=== PATIENT | female | born 1950 | race Hispanic/Latino ===

== ENCOUNTER 2024-07-30 17:21 | Observation (INO) | payer MEDICARE ==
[~2024-07-30] VITALS: Ht 157.5 cm; Wt 77.5 kg
--- NOTE | 2024-07-30 17:36 | ERN ---
ED Note History of Present Illness Stated Complaint: SENT BY LILLIANA BRONCHITIS Chief Complaint: Cough Time Seen by MD: 17:22 Time Seen by Midlevel: 17:22 Dictation: The patient is a 74-year-old female with a history of diabetes, hypertension, hyperlipidemia who presents to the emergency department after being sent by Dr. Short for evaluation of bronchitis, rule out pneumonia. Patient reports a non expiratory cough, sore throat, Chest pain with coughing, onset yesterday. Patient denies any fevers, shortness of breath, nausea or vomiting. Allergies: Coded Allergies: Penicillins (Unverified Allergy, Unknown, 07/30/24) egg (Unverified Allergy, Unknown, 07/30/24) Past Medical History Past Medical History: Arthritis, Diabetes-Type II, High Cholesterol, Hypertension Additional Past Medical Hx: CHRONIC BACK PAIN Surgical History: Cholecystectomy Surgical History Other: BACK PAIN RN Note Reviewed/Agreed w/PFSH: Yes Review of System Dictation Constitutional: Negative for fever,chills, and weight loss Eyes: Negative for injury, pain,redness, and discharge ENT: Negative for injury,pain or swelling positive for sore throat Cardiovascular: Negative for chest pain, palpitations, and edema Respiratory: Negative for shortness of breath, and wheezing, positive for cough Abdomen/GI: Negative for abdominal pain, nausea, vomiting, diarrhea, and constipation Back: Negative for injury and pain : Negative for injury, bleeding and discharge MS/Extremity: Negative for injury and deformity Skin: Negative for rash, and discoloration Neuro: Negative for headache, weakness, numbness, tingling, and seizure Psych: Negative for suicide ideation, homicidal ideation, and hallucinations Initial Vital Sign VS Vital Signs Date Time Temp Pulse Resp B/P (MAP) Pulse Ox O2 Delivery O2 Flow Rate FiO2 07/30/24 17:25 98.4 82 20 148/65 96 Room Air 0 07/30/24 18:06 21 Physical Exam Dictation Vital Signs reviewed General Appearance: Alert, oriented x 3, no acute distress, well developed, nourished. Head and Face: non-traumatic. Eyes: PERRL, pink conjunctivas, eyelid no trauma, anterior chamber with arcus senilis. Ears: Pinnas intact and no signs of trauma or erythema ear canals clear and no discharge TM no erythema Nose: No discharge, no bleeding. Oropharynx: Mouth normal, tongue pink. pharynx clear,no erythema, tonsils no exudates, no abscesses noted, mucous membrane moist Neck: Supple, non-tender, no thyromegaly, no masses, no JVD, no bruits Breast:Deferred Chest:No tenderness, no crepitus, no paradoxical movement, no retractions Lungs:Clear, well-ventilated, symmetric, no rales, no wheezing, no rhonchi, no stridor, good breath sounds bilaterally Heart: Regular rate, regular rhythm, no murmur, no gallops Vascular: no peripheral edema, Abdomen: Soft, positive bowel sounds, nondistended, no guarding, nontender, no rebound, no masses no hepatomegaly, no splenomegaly, no Lopez's sign, no hernias. Rectal: Deferred Genital: Deferred Neurological: Normal speech, motor function intact, sensory function intact Musculoskeletal: Neck nontender, full range of motion, back nontender, full range of motion, Extremities: nontender, full range of motion Skin: Color pink, dry, no turgor, no rash, no lacerations, no abrasions, no contusions. Lymphatic: Deferred Results (Laboratory/Radiology) Laboratory/Radiology Laboratory Tests Test 07/30/24 17:59 07/30/24 18:06 White Blood Count 5.8 K/uL (4.8-10.8) Red Blood Count 4.30 MIL/uL (4.00-5.50) Hemoglobin 12.4 g/dL (12.0-16.0) Hematocrit 38.5 % (36-48) Mean Corpuscular Volume 89.5 fL (79-99) Mean Corpuscular Hemoglobin 28.8 pg (27.0-33.0) Mean Corpuscular Hemoglobin Concent 32.2 g/dL (32.0-36.0) Red Cell Distribution Width 13.6 % (11.0-15.5) Platelet Count 252 K/uL (130-400) Mean Platelet Volume 10.2 fL (7.5-10.5) Immature Granulocyte % (Auto) 0.2 % (0-1) Neutrophils (%) (Auto) 51.1 % (40.0-77.0) Lymphocytes (%) (Auto) 36.6 % (21.0-51.0) Monocytes (%) (Auto) 9.2 % (3.0-13.0) Eosinophils (%) (Auto) 2.4 % (0.0-8.0) Basophils (%) (Auto) 0.5 % (0.0-5.0) Neutrophils # (Auto) 3.0 K/uL (1.8-7.7) Lymphocytes # (Auto) 2.1 K/uL (1.0-4.8) Monocytes # (Auto) 0.5 K/uL (0.1-1.0) Eosinophils # (Auto) 0.14 K/uL (0.00-0.70) Basophils # (Auto) 0.03 K/uL (0.00-0.20) Absolute Immature Granulocyte (auto 0.01 K/uL (0-1) Nucleated Red Blood Cells 0.0 % (0.0-0.19) Sodium Level 138 mmol/L (136-145) Potassium Level 4.0 mmol/L (3.5-5.1) Chloride Level 101 mmol/L (101-111) Carbon Dioxide Level 31 mmol/L (21-32) Blood Urea Nitrogen 11 mg/dL (7-18) Creatinine 0.7 mg/dL (0.5-1.0) Glomerular Filtration Rate Calc 91 mL/min (>90) Random Glucose 184 mg/dL (70-105) H Total Calcium 9.2 mg/dL (8.5-10.1) Magnesium Level 1.80 mg/dL (1.80-2.40) Total Creatine Kinase 125 U/L (21-232) Troponin I High Sensitivity 55 ng/L (4-50) *H B-Type Natriuretic Peptide 19 pg/mL (0-100) Influenza Type A Antigen Negative For Type A Influenza Type B Antigen Negative For Type B SARS-CoV-2 Antigen (Rapid) PRESUMPTIVE NEGATIVE Group A Streptococcus Rapid positive (NEGATIVE) *A REASON: cough ORDERING PHYSICIAN: JOHN LOPES COOKER MECHANIC PROCEDURE: CXR1VW - CHEST 1VW PORTABLE CHEST RADIOGRAPH INDICATION: cough COMPARISON: None FINDINGS: Heart size is normal. Mild calcific plaque is present along the aortic arch hsieh. The pulmonary vascularity and isabel appear normal. No abnormal pulmonary parenchymal opacity or consolidation identified. Left hemidiaphragm is slightly elevated. No significant pleural effusion noted. No pneumothorax detected. IMPRESSION: No radiographic evidence for any acute cardiopulmonary process. Labs Reviewed?: Yes EKG: (+) rhythm (Sinus rhythm) EKG Comment: Date:07/30/2024 Time:1755 Ventricular rate:75 HI interval:147 QRS duration:122 QT/QTc:398 EKG interpretation: Sinus rhythm, right bundle-branch block Reviewed by ED Attending no STEMI ED Course ED Course Orders Procedure Category Date Status Time Cbc With Differential LAB 07/30/24 Complete 17:30 B-Type Natriuretic LAB 07/30/24 Complete Peptide 17:30 Chest 1vw RAD 07/30/24 Resulted 17:30 12 Lead Ekg Tracing- EKG 07/30/24 Complete Technical 17:30 Magnesium LAB 07/30/24 Complete 17:30 Creatine Kinase, Total LAB 07/30/24 Complete 17:30 Troponin I High LAB 07/30/24 Complete Sensitivity 17:30 Basic Metabolic Panel LAB 07/30/24 Complete 17:30 Covid19 (Sars Antigen LAB 07/30/24 Complete Rapid) 17:30 Influenza Type A & B, LAB 07/30/24 Complete Rapid 17:30 Ipratropium/Albuterol PHA 07/30/24 Complete Neb (Duoneb) 17:30 Methylprednisolone PHA 07/30/24 Complete Succ 125mg (Solu-Medr 17:30 Acetaminophen 325 Tab PHA 07/30/24 Complete (Tylenol 325mg Tab 17:30 0.9%Nacl 1000ml (Ns PHA 07/30/24 In Process 1000ml) 17:30 Rapid (Group A Strep) LAB 07/30/24 Complete 17:35 Troponin I High LAB 07/30/24 Logged Sensitivity 18:47 Aspirin 325mg Tab PHA 07/30/24 Complete (Aspirin 325mg Tab) 19:30 Azithromycin 500mg+Ns PHA 07/30/24 In Process 250ml (Azithromyci 20:00 Admit Orders ADM 07/30/24 Transmitted 20:04 Edm Admit Bridge Order ADM 07/30/24 Transmitted 20:04 Current Medications Medications (Trade) Dose Ordered Sig/Divya Route PRN Reason Start Time Stop Time Status Last Admin Dose Admin Acetaminophen (TYLenol 325MG TAB) 650 mg ONCE ONCE PO 07/30/24 17:30 07/30/24 17:35 DC 07/30/24 18:39 Albuterol (DUOneb) 1 UDVIAL ONCE ONCE IH 07/30/24 17:30 07/30/24 17:35 DC 07/30/24 18:05 Aspirin (Aspirin 325mg Tab) 325 mg ONCE ONCE PO 07/30/24 19:30 07/30/24 19:31 DC Azithromycin 250 ml @ 250 mls/hr ONCE ONCE IVPB 07/30/24 20:00 07/30/24 20:59 Methylprednisolone Sodium Succinate (Solu-medROL 125MG) 125 mg ONCE ONCE IVP 07/30/24 17:30 07/30/24 17:35 DC 07/30/24 18:38 Sodium Chloride 1,000 ml @ 125 mls/hr ONCE ONCE IV 07/30/24 17:30 07/31/24 01:29 07/30/24 18:38 Vital Signs Date Time Temp Pulse Resp B/P (MAP) Pulse Ox O2 Delivery O2 Flow Rate FiO2 07/30/24 19:58 98.4 81 18 121/58 97 Room Air* 0 21 07/30/24 18:06 98.2 88 16 127/62 98 Room Air* 0 21 07/30/24 17:52 76 18 07/30/24 17:25 98.4 82 20 148/65 96 Room Air 0 HEART Score Response (Comments) Value History: Low suspicion (0) 0 EKG: Normal 0 Age: > 65yrs (+2) 2 Risk Factors: 1-2 risk factors (+1) 1 Initial Troponin: 1-3x Normal Limit (+1) 1 Total 4 Medical Decision Making MDM MDM: The patient is a 74-year-old female with a history of diabetes, hypertension, hyperlipidemia who presents to the emergency department after being sent by Dr. Short for evaluation of bronchitis, rule out pneumonia. Patient reports a non expiratory cough, sore throat ,Chest pain with coughing, onset yesterday. Patient denies any fevers, shortness of breath, nausea or vomiting. CBC showed no leukocytosis, no anemia, chemistry showed no electrolyte imbalance, slightly elevated troponin at 50. Patient was currently not having any chest pain. Serology positive for strep. Patient treated with the azithromycin. Chest x-ray showed no acute pathology. Patient will be admitted for evaluation of elevated troponin further treatment. Differential diagnosis: Pneumonia, bronchitis, upper respiratory infection, strep throat, ACS Comorbidities: Diabetes, hypertension, hyperlipidemia, fatty liver, cholecystectomy Tests considered and not ordered secondary to shared decision making include: none Previous outside records reviewed: none Risk of complication and/or morbidity or mortality of patient management: The patient meets criteria for admission. Need for emergency major/minor surgery: No There are no social concerns with this patient. I independently interpreted the tests I ordered (labs, urinalysis, etc.). I discussed the case with the hospitalist for admission. Zahida ERIC who accepts admission I discussed the case with the following specialists: none. Historian: pateint. I independently interpreted imaging studies and EKGs that I ordered (US, CT, XR, EKG, etc.). External chart review: none. Medical management and examination interpretation discussions were had by me with other qualified healthcare professionals as indicated for the patient's care. DX & DISP Disposition: Inpatient Decision to Admit Date: Jul 30, 2024 Decision to Admit Time: 20:09 Departure Impression: Primary Impression: ACS (acute coronary syndrome) Additional Impressions: Elevated troponin, Strep throat, Cough Condition: Stable Referrals: MANUEL SHORT (PCP) I have reviewed the case, and I agree with, Diagnosis and Plan JOHN LOPES Jul 30, 2024 17:36
[2024-07-30 17:52] VITALS: PULSE 76; RESP 18
--- NOTE | 2024-07-30 17:57 | EKG ---
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
[2024-07-30] MEDS: IpraTROPium/alBUTERol SULFATE 3 ML SOLUTION IH ONE (18:05)
[2024-07-30 18:19] LABS: BASOPHILS # (AUTO) 0.03 K/uL (0.00-0.20); BASOPHILS % (AUTO) 0.5 % (0.0-5.0); EOSINOPHILS # (AUTO) 0.14 K/uL (0.00-0.70); EOSINOPHILS % (AUTO) 2.4 % (0.0-8.0); HEMATOCRIT 38.5 % (36-48); IMMATURE GRANULOCYTE ABSOLUTE 0.01 K/uL (0-1); LYMPHOCYTES # (AUTO) 2.1 K/uL (1.0-4.8); LYMPHOCYTES % (AUTO) 36.6 % (21.0-51.0); MEAN CORPUSCULAR HEMOGLOBIN 28.8 pg (27.0-33.0); MEAN CORPUSCULAR HGB CONC 32.2 g/dL (32.0-36.0); MEAN CORPUSCULAR VOLUME 89.5 fL (79-99); MONOCYTES # (AUTO) 0.5 K/uL (0.1-1.0); MONOCYTES % (AUTO) 9.2 % (3.0-13.0); NEUTROPHILS % (AUTO) 51.1 % (40.0-77.0); PLATELET COUNT (AUTO) 252 K/uL (130-400); RED CELL DISTRIBUTION WIDTH 13.6 % (11.0-15.5); WHITE BLOOD COUNT (AUTO) 5.8 K/uL (4.8-10.8)
--- NOTE | 2024-07-30 18:23 | HMCIMG ---
PORTABLE CHEST RADIOGRAPH INDICATION: cough COMPARISON: None FINDINGS: Heart size is normal. Mild calcific plaque is present along the aortic arch hsieh. The pulmonary vascularity and isabel appear normal. No abnormal pulmonary parenchymal opacity or consolidation identified. Left hemidiaphragm is slightly elevated. No significant pleural effusion noted. No pneumothorax detected. IMPRESSION: No radiographic evidence for any acute cardiopulmonary process.
[2024-07-30 18:29] LABS: CREATININE 0.7 mg/dL (0.5-1.0)
[2024-07-30 18:34] LABS: MAGNESIUM 1.8 mg/dL (1.80-2.40)
[2024-07-30 18:37] LABS: B-TYPE NATRIURETIC PEPTIDE 19 pg/mL (0-100)
[2024-07-30] MEDS: 0.9%NACL 1000ML 1,000 ML IV ONE (18:38)
[2024-07-30] MEDS: Solu-medROL 125MG VIAL IVP ONE (18:38)
[2024-07-30] MEDS: acetaMINOPHEN 325 MG TAB PO ONE (18:39)
[2024-07-30 18:45] LABS: COVID19 (SARS ANTIGEN RAPID) PRESUMPTIVE NEGATIVE (NEGATIVE); INFLUENZA TYPE A Negative For Type A (NEGATIVE); INFLUENZA TYPE B Negative For Type B (NEGATIVE)
[2024-07-30] MEDS: AZITHROMYCIN 500MG+NS 250ML 250 ML IVPB ONE (20:15)
[2024-07-30] MEDS: ASPIRIN 325MG TAB PO ONE (20:15)
[2024-07-30] MEDS ORDERED: GLUCAGON 1MG KIT 1 MG ML IM PRN (20:30)
[2024-07-30] MEDS ORDERED: ondanSETRON 4MG INJ IV PRN (20:30)
[2024-07-30] MEDS ORDERED: DEXTROSE 50%-WATER 50 ML DISP.SYRIN IV PRN (20:30)
[2024-07-30] MEDS ORDERED: MAGNESIUM 2GM PREMIX 50ML 50 ML IV PRN (20:30)
[2024-07-30] MEDS ORDERED: acetaMINOPHEN 325 MG TAB PO PRN (20:30)
[2024-07-30] MEDS ORDERED: PoTASSium chloRIDE 20MEQ ER 20 MEQ ERTAB PO PRN (20:30)
[2024-07-30] MEDS ORDERED: PoTASSium chloRIDE 20MEQ/100ML 100 ML IV PRN (20:30)
[2024-07-30] MEDS ORDERED: PoTASSium chl 10% ELIXIR 20MEQ 20 MEQ/15 ML UDCUP PO PRN (20:30)
[2024-07-30 20:57] LABS: APPEARANCE,URINE CLEAR (CLEAR); BILIRUBIN,URINE NEGATIVE (NEGATIVE); COLOR,URINE COLORLESS (YELLOW); GLUCOSE, URINE (UA) NEGATIVE (NEGATIVE); KETONES,URINE NEGATIVE (NEGATIVE); LEUKOCYTE ESTERASE ,URINE NEGATIVE Leu/uL (NEGATIVE); NITRATE,URINE NEGATIVE (NEGATIVE); OCCULT BLOOD,URINE NEGATIVE (NEGATIVE); PH,URINE 6.5 (5.0-8.0); PROTEIN,URINE NEGATIVE (NEGATIVE); UROBILINOGEN,URINE 0.2 mg/dL (0.2-1.0)
[2024-07-30 20:59] LABS: ADD UA MICROSCOPIC NO
[2024-07-30] MEDS: INSULIN humuLIN R 100 UNIT/ML 3ML SQ SCH (21:00)
--- NOTE | 2024-07-30 21:09 | HP ---
[facility] Date of Service: Jul 30, 2024 Time of Service: 20:05 PCP: Han Avila HISTORY OF PRESENT ILLNESS: This is a 74-year-old female, Thai-speaking with past medical history of chronic back pain, diabetes, hypertension and hyperlipidemia who presents to the ED coming from PCP clinic for evaluation of bronchitis and r/o pneumonia.As per ER report patient having dry cough with sore throat and chest pain with coughing onset yesterday.On my evaluation patient reports she was having non productive cough which started yesterday and last night she experienced sudden onset of headache, fatigue and feeling tired,but never had chest pain and sore throat and today she went to see her PCP and instructed her to come to the ED.Patient denies having cardiac problem and has not been seen by a pattern storage clerk before she said.Patient denies recent travel outside the country however his son is also having cough. Seen and examined patient in the ED awake,alert and coherent,appears comfortab le.Patient denies fever,chills, sore throat,chest pain,palpitation and shortness of breath. His vital signs temperature 98.4, heart rate 81, blood pressure 121/58, saturation 97% on room air. Labs: CBC . Glucose 184, troponin 55 BNP 19 the rest of the chemistry is normal. Influenza type a and B negative, SARs COVID negative group a strep positive a. EKG result revealed sinus rhythm heart rate 75 with right bundle branch block. Chest x-ray result revealed no radiographic evidence for any acute cardiopulmonary process. While in the ER patient received aspirin 325 mg IV, Tylenol 650 mg p.o., Solu-Medrol 125 mg IV DuoNeb and patient is started on NS at 1:25 a.m. mL/hour. We will admit patient for further medical management. REVIEW OF SYSTEMS CONSTITUTIONAL: Denies fevers, chills, or night sweats. No unintentional weight loss reported. NEUROLOGICAL: Complaints of fatigue, headache and generalized body weakness Denies amaurosis fugax, sensory deficit, vertigo/spinning sensation, gait abnormalities, or tremors. ENT: No hearing loss, otalgia, otorrhea, rhinitis, rhinorrhea, hoarseness, or sore throat. CARDIOVASCULAR: Denies any exertional angina, dyspnea on exertion, orthopnea, paroxysmal nocturnal dyspnea, palpitations, life-threatening arrhythmias, claudication. PULMONARY: Dry cough Denies any shortness of breath, phlegm/sputum, hemoptysis, pleuritic chest pain. SLEEP: Denies morning headaches, daytime somnolence or napping. Denies difficulty falling asleep, staying asleep, waking from sleep. Denies knowledge of snoring. GASTROINTESTINAL: Denies any type of dysphagia to either liquids or solids. Denies nausea, vomiting, pyrosis, early satiety, abdominal pain, diarrhea, constipation, or changes in stool consistency or caliber. Denies coffee-ground emesis, hematemesis, hematochezia, or melanotic stools. GENITOURINARY: Denies frequency, urgency, nocturia, hematuria or incontinence (Storage/Irritative symptoms.) Low urinary stream, straining to void, urinary intermittency or hesitancy, splitting of the voiding stream, terminal dribbling. ENDOCRINOLOGIC: Denies polyuria, polydipsia, polyphagia or heat/cold intolerances. HEMATOLOGIC: Denies thrombophilia/previous clots, or coagulopathy/bleeding disorders. ONCOLOGIC: Denies personal history of malignancy. DERMATOLOGIC: Denies rashes or pruritus. PSYCHIATRIC: Denies any suicidal or homicidal ideation. Denies hallucinations. PAST MEDICAL HISTORY: [ Chronic back pain, diabetes, hypertension and hyperlipidemia ] PAST SURGICAL HISTORY: [Back surgery, cholecystectomy ] PAST SOCIAL HISTORY: [ Patient lives with son. Patient denies alcohol tobacco and recreational drug use. ] FAMILY HISTORY: [Noncontributory ] Coded Allergies: Penicillins (Unverified Allergy, Unknown, 07/30/24) egg (Unverified Allergy, Unknown, 07/30/24) PHYSICAL EXAM GENERAL APPEARANCE: The patient is awake, alert, and oriented, in no acute cardiopulmonary distress. NEUROLOGICAL: Cranial nerves II-XII grossly intact. Motor is 5/5 in bilateral upper and lower extremities proximal to distal. No sensory deficits. HEENT: Face is symmetric. Pupils are equal and reactive. Extraocular movements are intact. NECK: Supple. No JVD. No thyromegaly. No submental, submandibular, pre- /postauricular, occipital or supraclavicular lymphadenopathy. CHEST: Normal chest expansion. No Telemetry. LUNGS: Absence of any rales, rhonchi or any wheezing. CARDIOVASCULAR: Regular. S1 and S2 normal. No appreciable rubs, murmurs or gallops. ABDOMEN: Soft, nontender, and nondistended. There is no rebound, voluntary guarding, or rigidity. : Deferred. No [place]. EXTREMITIES: Non-edematous and not cyanotic. No clubbing. Good capillary refi ll. SKIN: No skin breakdown. Vital Sign (Last 24 Hours) 07/30/24 19:58 Temp 98.4 Pulse 81 Resp 18 B/P (MAP) 121/58 Pulse Ox 97 O2 Delivery Room Air* O2 Flow Rate 0 FiO2 21 LABS: Laboratory: Test 07/30/24 18:06 07/30/24 17:59 Range/Units Influenza Type A Antigen Negative For Type A NEGATIVE Influenza Type B Antigen Negative For Type B NEGATIVE SARS-CoV-2 Antigen (Rapid) PRESUMPTIVE NEGATIVE NEGATIVE Group A Streptococcus Rapid positive *A NEGATIVE White Blood Count 5.8 4.8-10.8 K/uL Red Blood Count 4.30 4.00-5.50 MIL/uL Hemoglobin 12.4 12.0-16.0 g/dL Hematocrit 38.5 36-48 % Mean Corpuscular Volume 89.5 79-99 fL Mean Corpuscular Hemoglobin 28.8 27.0-33.0 pg Mean Corpuscular Hemoglobin Concent 32.2 32.0-36.0 g/dL Red Cell Distribution Width 13.6 11.0-15.5 % Platelet Count 252 130-400 K/uL Mean Platelet Volume 10.2 7.5-10.5 fL Immature Granulocyte % (Auto) 0.2 0-1 % Neutrophils (%) (Auto) 51.1 40.0-77.0 % Lymphocytes (%) (Auto) 36.6 21.0-51.0 % Monocytes (%) (Auto) 9.2 3.0-13.0 % Eosinophils (%) (Auto) 2.4 0.0-8.0 % Basophils (%) (Auto) 0.5 0.0-5.0 % Neutrophils # (Auto) 3.0 1.8-7.7 K/uL Lymphocytes # (Auto) 2.1 1.0-4.8 K/uL Monocytes # (Auto) 0.5 0.1-1.0 K/uL Eosinophils # (Auto) 0.14 0.00-0.70 K/uL Basophils # (Auto) 0.03 0.00-0.20 K/uL Absolute Immature Granulocyte (auto 0.01 0-1 K/uL Nucleated Red Blood Cells 0.0 0.0-0.19 % Sodium Level 138 136-145 mmol/L Potassium Level 4.0 3.5-5.1 mmol/L Chloride Level 101 101-111 mmol/L Carbon Dioxide Level 31 21-32 mmol/L Blood Urea Nitrogen 11 7-18 mg/dL Creatinine 0.7 0.5-1.0 mg/dL Glomerular Filtration Rate Calc 91 >90 mL/min Random Glucose 184 H 70-105 mg/dL Total Calcium 9.2 8.5-10.1 mg/dL Magnesium Level 1.80 1.80-2.40 mg/dL Total Creatine Kinase 125 21-232 U/L Troponin I High Sensitivity 55 *H 4-50 ng/L B-Type Natriuretic Peptide 19 0-100 pg/mL DIAGNOSTICS / RADIOLOGY: [ ] ASSESSMENT: Elevated troponin rule out ACS POA Positive strep throat POA Uncontrolled diabetes POA Hypertension POA Hyperlipidemia POA Right bundle branch block per ECG POA PLAN: We will admit patient in PCCU We will start heart healthy diet We will continue aspirin 81 mg p.o. daily We will start patient on Levaquin 500 mg IV daily We will start patient on Lovenox 30 mg subQ daily & ,SCD for DVT prophylaxis We will start on Famotidine 20 mg IV bid for GI prophylaxis We will replace electrolytes as needed per protocol We will start on insulin sliding scale AC & HS with hypoglycemia protocol We will add prn medication for fever,pain,cough , nausea and vomiting We will trend troponin q.6 x3 We will seek Cardiology consultation We will reconcile home meds once medlist available We will request labs in am Further orders to follow depending on above results Case discussed with attending physician and came up with above treatment and plan of care. ADVANCED CARE PLANNING 1. Which of the following were discussed? Hospice Care - No Therapeutic options - Yes Advance Directives - No Other discussions - 2. Discussed with who? Patient 3. Voluntary nature of this service was explained to the patient? Yes 4. Amount of time spent - ____25___ 5. Reviewed by Physician? (if this service was performed by NPP) Yes Patient seen and examined by me. Agree with note by OIL BURNER INSTALLER SEE ADDITIONAL ORDERS PER CHART DISCUSSED WITH NURSING STAFF DONDON,MARIA FERNANDA P PLATFORM SUPERVISOR Jul 30, 2024 21:09
[2024-07-30] MEDS: levoFLOXacin 500 MG/D5W 100 ML 100 ML IV SCH (21:44)
[2024-07-30] MEDS: IpraTROPium/alBUTERol SULFATE 3 ML SOLUTION IH SCH (22:40)
[2024-07-30 22:44] VITALS: PULSE 84; RESP 18
[2024-07-30 22:45] VITALS: PULSE 84; RESP 18; O2SAT 99
--- NOTE | 2024-07-30 22:49 | NUR ---
ASSUMED PT CARE AT THIS TIME
[2024-07-31] VITALS (17 sets, daily range): BP systolic 120–134; BP diastolic 48–73; PULSE 75–90; RESP 15–38; TEMP 98–98.2; O2SAT 93–97
[2024-07-31 02:09] LABS: HEMOGLOBIN A1C 7.5 % (4.0-6.0)
[2024-07-31 07:16] LABS: HEMATOCRIT 40.3 % (36-48); IMMATURE GRANULOCYTE ABSOLUTE 0.02 K/uL (0-1); LYMPHOCYTES # (AUTO) 0.8 K/uL (1.0-4.8); MEAN CORPUSCULAR HEMOGLOBIN 29.3 pg (27.0-33.0); MEAN CORPUSCULAR VOLUME 91.4 fL (79-99); MONOCYTES # (AUTO) 0.1 K/uL (0.1-1.0); NEUTROPHILS # (AUTO) 4.2 K/uL (1.8-7.7); NEUTROPHILS % (AUTO) 83.6 % (40.0-77.0); PLATELET COUNT (AUTO) 234 K/uL (130-400); RED BLOOD CELL COUNT(AUTO) 4.41 MIL/uL (4.00-5.50); RED CELL DISTRIBUTION WIDTH 13.6 % (11.0-15.5)
[2024-07-31 07:27] LABS: ALBUMIN 3.2 g/dL (3.5-5.0); BILIRUBIN,TOTAL 0.1 mg/dL (0.2-1.0); CREATININE 0.8 mg/dL (0.5-1.0); MAGNESIUM 1.8 mg/dL (1.80-2.40); POTASSIUM 4.3 mmol/L (3.5-5.1); TOTAL PROTEIN, SERUM 7.4 g/dL (6.0-8.3)
--- NOTE | 2024-07-31 08:31 | NUR ---
I CHECKED PATIENTS BLOOD SUGAR WHICH CAME OUT TO 254, BUT DID NOT TRANSLATE TO EMAR OR LAB RESULTS ON MEDITECH, PATIENT STATES SHE HAS NEVER TAKEN INSULIN BEFORE EITHER, I HELD INSULIN FOR THE MORNING FOR THOSE REASONS, I LET PATIENT KNOW WE WILL RECHECK AT 1130 PATIENT RESTING IN BED, CALL LIGHT IN REACH
--- NOTE | 2024-07-31 09:43 | PN ---
[facility] PROGRESS NOTE Date of Service: Jul 31, 2024 Time of Service: 09:34 SUBJECTIVE: This is a 74-year-old female, Cymro-speaking with past medical history of chronic back pain, diabetes, hypertension and hyperlipidemia who presented to the ED coming from PCP clinic for evaluation of bronchitis and r/o pneumonia. As per ER report patient having dry cough with sore throat and chest pain with coughing. Seen and examined patient in the ED awake,alert and coherent,appears comfortable. In the emergency room vital signs temperature 98.4, heart rate 81, blood pressure 121/58, saturation 97% on room air. The emergency room Labs: CBC . Glucose 184, troponin 55 BNP 19 the rest of the chemistry is normal. Serology to include Influenza type a and B negative, SARs COVID negative group A strep positive. EKG result revealed sinus rhythm heart rate 75 with right bundle branch block. Chest x-ray result revealed no radiographic evidence for any acute cardiopulmonary process. While in the ER patient received aspirin 325 mg IV, Tylenol 650 mg p.o., Solu- Medrol 125 mg IV DuoNeb and patient is started on NS at 1:25 a.m. mL/hour. Patient admitted for further evaluation and medical management. Today the patient is hemodynamically stable, afebrile, saturating normal on room air. CBC is unremarkable. REVIEW OF SYSTEMS CONSTITUTIONAL: Denies fevers, chills, or night sweats. No unintentional weight loss reported. NEUROLOGICAL: Complaints of fatigue, headache and generalized body weakness Denies amaurosis fugax, sensory deficit, vertigo/spinning sensation, gait abnormalities, or tremors. ENT: No hearing loss, otalgia, otorrhea, rhinitis, rhinorrhea, hoarseness, or sore throat. CARDIOVASCULAR: Denies any exertional angina, dyspnea on exertion, orthopnea, paroxysmal nocturnal dyspnea, palpitations, life-threatening arrhythmias, claudication. PULMONARY: Dry cough Denies any shortness of breath, phlegm/sputum, hemoptysis, pleuritic chest pain. SLEEP: Denies morning headaches, daytime somnolence or napping. Denies difficulty falling asleep, staying asleep, waking from sleep. Denies knowledge of snoring. GASTROINTESTINAL: Denies any type of dysphagia to either liquids or solids. Denies nausea, vomiting, pyrosis, early satiety, abdominal pain, diarrhea, constipation, or changes in stool consistency or caliber. Denies coffee-ground emesis, hematemesis, hematochezia, or melanotic stools. GENITOURINARY: Denies frequency, urgency, nocturia, hematuria or incontinence (Storage/Irritative symptoms.) Low urinary stream, straining to void, urinary intermittency or hesitancy, splitting of the voiding stream, terminal dribbling. ENDOCRINOLOGIC: Denies polyuria, polydipsia, polyphagia or heat/cold intolerances. HEMATOLOGIC: Denies thrombophilia/previous clots, or coagulopathy/bleeding disorders. ONCOLOGIC: Denies personal history of malignancy. DERMATOLOGIC: Denies rashes or pruritus. PSYCHIATRIC: Denies any suicidal or homicidal ideation. Denies hallucinations. PHYSICAL EXAM GENERAL APPEARANCE: The patient is awake, alert, and oriented, in no acute cardiopulmonary distress. NEUROLOGICAL: Cranial nerves II-XII grossly intact. Motor is 5/5 in bilateral upper and lower extremities proximal to distal. No sensory deficits. HEENT: Face is symmetric. Pupils are equal and reactive. Extraocular movements are intact. NECK: Supple. No JVD. No thyromegaly. No submental, submandibular, pre- /postauricular, occipital or supraclavicular lymphadenopathy. CHEST: Normal chest expansion. No Telemetry. LUNGS: Absence of any rales, rhonchi or any wheezing. CARDIOVASCULAR: Regular. S1 and S2 normal. No appreciable rubs, murmurs or gallops. ABDOMEN: Soft, nontender, and nondistended. There is no rebound, voluntary guarding, or rigidity. : Deferred. No [place]. EXTREMITIES: Non-edematous and not cyanotic. No clubbing. Good capillary refill. SKIN: No skin breakdown. Vital Signs (last 8hr) Date Time Temp Pulse Resp B/P (MAP) Pulse Ox O2 Delivery O2 Flow Rate FiO2 07/31/24 08:00 98.2 82 14 112/53 97 Room Air* 0 21 07/31/24 06:43 81 18 07/31/24 06:42 81 18 N/A Room Air 21 07/31/24 05:18 98.2 92 18 100/69 96 Room Air* 0 21 07/31/24 02:03 82 18 LABS: Laboratory: Test 07/31/24 08:19 07/31/24 07:06 07/30/24 18:06 07/30/24 17:59 Range/Units Whole Blood Glucose 258 H 70-110 MG/DL White Blood Count 5.0 4.8-10.8 K/uL Red Blood Count 4.41 4.00-5.50 MIL/uL Hemoglobin 12.9 12.0-16.0 g/dL Hematocrit 40.3 36-48 % Mean Corpuscular Volume 91.4 79-99 fL Mean Corpuscular Hemoglobin 29.3 27.0-33.0 pg Mean Corpuscular Hemoglobin Concent 32.0 32.0-36.0 g/dL Red Cell Distribution Width 13.6 11.0-15.5 % Platelet Count 234 130-400 K/uL Mean Platelet Volume 10.1 7.5-10.5 fL Immature Granulocyte % (Auto) 0.4 0-1 % Neutrophils (%) (Auto) 83.6 H 40.0-77.0 % Lymphocytes (%) (Auto) 15.0 L 21.0-51.0 % Monocytes (%) (Auto) 1.0 L 3.0-13.0 % Eosinophils (%) (Auto) 0.0 0.0-8.0 % Basophils (%) (Auto) 0.0 0.0-5.0 % Neutrophils # (Auto) 4.2 1.8-7.7 K/uL Lymphocytes # (Auto) 0.8 L 1.0-4.8 K/uL Monocytes # (Auto) 0.1 0.1-1.0 K/uL Eosinophils # (Auto) 0.00 0.00-0.70 K/uL Basophils # (Auto) 0.00 0.00-0.20 K/uL Absolute Immature Granulocyte (auto 0.02 0-1 K/uL Nucleated Red Blood Cells 0.0 0.0-0.19 % Sodium Level 141 136-145 mmol/L Potassium Level 4.3 3.5-5.1 mmol/L Chloride Level 105 101-111 mmol/L Carbon Dioxide Level 27 21-32 mmol/L Blood Urea Nitrogen 14 7-18 mg/dL Creatinine 0.8 0.5-1.0 mg/dL Glomerular Filtration Rate Calc 78 >90 mL/min Random Glucose 283 #H 70-105 mg/dL Total Calcium 9.1 8.5-10.1 mg/dL Magnesium Level 1.80 1.80-2.40 mg/dL Total Bilirubin 0.1 L 0.2-1.0 mg/dL Aspartate Amino Transf (AST/SGOT) 17 10-37 U/L Alanine Aminotransferase (ALT/SGPT) 18 12-78 U/L Alkaline Phosphatase 91 50-136 U/L Total Creatine Kinase 108 21-232 U/L Troponin I High Sensitivity 50 4-50 ng/L Total Protein 7.4 6.0-8.3 g/dL Albumin 3.2 L 3.5-5.0 g/dL Triglycerides Level 23 L 30-200 mg/dL Cholesterol Level 172 <200 mg/dL LDL Cholesterol 85 0-99 mg/dL HDL Cholesterol 76 35-85 mg/dL Influenza Type A Antigen Negative For Type A NEGATIVE Influenza Type B Antigen Negative For Type B NEGATIVE SARS-CoV-2 Antigen (Rapid) PRESUMPTIVE NEGATIVE NEGATIVE Group A Streptococcus Rapid positive *A NEGATIVE Hemoglobin A1c 7.5 H 4.0-6.0 % Estimated Average Glucose (eAG) 169 H 70-126 mg/dL B-Type Natriuretic Peptide 19 0-100 pg/mL Test 07/30/24 17:48 Range/Units Urine Color COLORLESS YELLOW Urine Appearance CLEAR CLEAR Urine pH 6.5 5.0-8.0 Urine Specific [place] 1.008 1.001-1.031 Urine Protein NEGATIVE NEGATIVE mg/dL Urine Glucose (UA) NEGATIVE NEGATIVE mg/dL Urine Ketones NEGATIVE NEGATIVE mg/dL Urine Occult Blood NEGATIVE NEGATIVE Urine Nitrate NEGATIVE NEGATIVE Urine Bilirubin NEGATIVE NEGATIVE mg/dL Urine Urobilinogen 0.2 0.2-1.0 mg/dL Urine Leukocyte Esterase NEGATIVE NEGATIVE Familia/uL Current Medications Medications (Trade) Dose Ordered Sig/Divya Route PRN Reason Start Time Stop Time Status Last Admin Dose Admin Acetaminophen (TYLenol 325MG TAB) 650 mg Q4H PRN PO MILD PAIN (1-3) 07/30/24 20:30 08/29/24 20:29 Acetaminophen (TYLenol 325MG TAB) 650 mg Q6H PRN PO TEMPERATURE GREATER THAN 101.5 07/30/24 20:30 08/29/24 20:29 Albuterol (DUOneb) 1 udvial [id number] IH 07/30/24 22:00 08/29/24 21:59 07/31/24 06:42 1 UDVIAL Aspirin (Aspirin 81mg Ec Tab) 81 mg DAILY PO 07/31/24 09:00 08/30/24 08:59 Dextrose (D50w) 50 ml AD PRN IV HYPOGLYCEMIA PROTOCOL 07/30/24 20:30 08/29/24 20:29 Enoxaparin Sodium (Lovenox) 30 mg DAILY SQ 07/31/24 09:00 08/30/24 08:59 Famotidine (Pepcid 20mg Vial) 20 mg DAILY IV 07/31/24 09:00 08/30/24 08:59 Glucagon (Glucagon 1mg Kit) 1 mg AD PRN IM HYPOGLYCEMIA PROTOCOL 07/30/24 20:30 08/29/24 20:29 Guaifenesin/ Dextromethorphan (RobiTUSSin DM 200/20MG 10ML) 10 ml Q4H PRN PO COUGH 07/30/24 20:30 08/29/24 20:29 Insulin Human Regular (humuLIN R 100 UNIT/ML 3ML) INSULIN SLIDING SCAL... ACHS SQ 07/30/24 21:00 08/29/24 20:59 Levofloxacin/ Dextrose 100 ml @ 100 mls/hr Q24H IV 07/30/24 20:30 08/09/24 20:29 07/30/24 21:44 100 MLS/HR Magnesium Sulfate 50 ml @ 0 mls/hr PROTOCOL PRN IV OTHER [SEE ORDER COMMENTS] 07/30/24 20:30 08/29/24 20:29 Ondansetron HCl (zoFRAN 4MG INJ) 4 mg Q6H PRN IV NAUSEA/VOMITING 07/30/24 20:30 08/29/24 20:29 Potassium Chloride 100 ml @ 100 mls/hr AD PRN IV POTASSIUM PROTOCOL 07/30/24 20:30 08/29/24 20:29 Potassium Chloride (K-Dur/Klor-Con 20meq) 20 meq AD PRN PO POTASSIUM PROTOCOL 07/30/24 20:30 08/29/24 20:29 Potassium Chloride (KCl 10% Elixir 20meq/15ml) 20 meq AD PRN PO POTASSIUM PROTOCOL 07/30/24 20:30 08/29/24 20:29 DIAGNOSTICS / RADIOLOGY: [ ] ASSESSMENT: Elevated troponin rule out ACS POA Positive strep throat POA Uncontrolled diabetes POA Hypertension POA Hyperlipidemia POA Right bundle branch block per ECG POA PLAN: Patient to be admitted to the medical floor, continue supportive care with IV fluids, empiric IV antibiotics. Troponin level back to normal. Patient's x-ray no radiographic evidence of active cardiopulmonary process Continue the patient on Levaquin 100 mg IV daily NEURO: Minimize central acting medications as possible. Fall Precautions. Well lighted room through the day and minimize interruptions through the night to prevent acute delirium. PULMONARY: Supplemental 02 as needed BiPAP as necessary, for respiratory distress Titrate Fio2 to keep Spo2 > or = 90% DuoNebs and CPT as needed IS hourly while awake for pulmonary hygiene prn Out of bed to chair as tolerated Maintain aspiration precautions at all times CARDIOVASCULAR: Follow hemodynamics. Vital signs per facility protocol GI & NUTRITION: Continue nutritional support Aspirations precautions Prokinetic agents and laxatives as needed KIDNEYS & ELECTROLYTES: Strict monitoring of intake and output Daily weights Avoid nephrotoxic agents Monitor electrolytes and replace as needed Goal urine output of 30mL/hr or 0.5mL/kg/hr Medications to be dosed according to renal function. Avoid contrast if possible ENDOCRINE: Maintain blood glucose between 100-180 at all times. Insulin sliding scale for blood glucose management Hypoglycemia and hyperglycemia protocol in place INFECTIOUS DISEASE: Trend temperature, WBC and procalcitonin level Follow cultures, deescalate antibiotics as soon as possible. Panculture if new onset fever HEMATOLOGY & COAGULATION: Monitor H&H. Keep Hgb > 7 Transfuse 1 unit of PRBC for Hgb < 7 Transfuse 1 pack of platelets of platelets < 20, 000 Watch for any signs and symptoms of bleeding SKIN: Pressure ulcer prevention per facility protocol Specialty mattress as needed ORTHO/REHAB Continue PT/OT PRN: MEDICATIONS Tylenol 650 mg po every 4 hrs for fever zofran 4 mg IV every 6 hrs for n/v Hydralazine 5 mg IV every 4 hrs systolic pressure > 160 bowel regiment: lactulose 20 gm PO BID PRN constipation Supportive measures: Continue GI and DVT prophylaxis Disposition: Pending improvement in clinical condition All questions answered time spent: > 35 min LEATHA SALINAS MD Jul 31, 2024 09:43
[2024-07-31] MEDS ORDERED: METF-446 PO (10:09)
[2024-07-31] MEDS ORDERED: LISI1TAB53 PO (10:09)
[2024-07-31] MEDS ORDERED: PREG100C PO (10:09)
[2024-07-31] MEDS ORDERED: AMLO-258 PO (10:09)
[2024-07-31] MEDS ORDERED: SIMV-43 PO (10:09)
[2024-07-31 10:37] LABS: ERYTHROCYTE SEDIMENTATION RATE 25 MM/HR (0-30)
[2024-07-31] MEDS: ASPIRIN 81 MG EC TAB PO SCH (10:38)
[2024-07-31] MEDS: FAMOTIDINE 20MG VIAL IV SCH (10:38)
[2024-07-31] MEDS: ENOXAPARIN SODIUM 30 MG/0.3 ML SQ SCH (10:43)
--- NOTE | 2024-07-31 11:35 | HMCSR ---
APPROVED REPORT EXAM: Two-dimensional and M-mode echocardiogram with Doppler and color Doppler. INDICATION ICD: Elevated troponin 2D Dimensions IVSd1.2 (0.7-1.1cm)LVEF(%)65.2 (>50%)LVED Vol(simp.)73.0 mL LVDd4.2 (3.8-5.6cm)FS(%)35 %LVES Vol(simp.)27.0 mL PWd0.9 (0.7-1.1cm)LA (2D)3.7 (1.6-4.0cm)LVEF(%, simp.)63 % IVSs1.5 cmAo Root(2D)2.6 (2.0-3.7cm)LA ESV INDEX (BP)27.21 mL/m2 LVDs2.7 (2.5-4.0cm)LVOT diam2.2 (1.8-2.4cm) PWs1.3 cmIVC diam1.9 cm Deformation Strain Apical 4-22.0 % Apical 2-22.0 % Apical 3-19.0 % Global Strain-21.0 % M-Mode Dimensions EPSS0.5 cm LA (MM)3.8 (1.6-4.0cm) Ao Root(MM)3.0 (2.0-3.7cm) Aortic Valve AoV Vmax1.7 m/Hung Peak GR11.0 mmHgLVOT Vmax1.1 m/s AoV VTI0.4 mAo Mean GR5.8 mmHgLVOT VTI0.28 m QUIANA (VMAX)2.7 cm2AVA (VTI) 2.7 cm2 Mitral Valve MV E Vmax96.7 cm/sDECEL Ydmm343 ms MV A Zfze649.5 cm/sP 1/2 T58 ms E/A ratio0.8MVA (PHT)3.8 cm2 TDI E/E' Ezvmmf31.8E/E' Orrwexf14.8 Medial E' Peak V7.00 cm/sLateral E' Peak V7.00 cm/s Pulmonary Valve PV Vmax1.2 m/s Tricuspid Valve TR Vmax2.0 m/sRAP (EST) 3 ipCiINVA25.2 mmHg TR Peak GR17.2 mmHg Left Ventricle The left ventricle is normal size. GLS -21.0%. There is normal LV segmental wall motion. Normal globa l strain There is mild left ventricular wall thickness. LVEF is 60-65%. 3D volume EF 64%. Stage I kendra stolic dysfunction. Right Ventricle The right ventricle is normal size. The right ventricular systolic function is normal. Atria The left atrium size is normal. The right atrium size is normal. Aortic Valve The aortic valve is normal in structure. No aortic regurgitation is present. There is no aortic valvu lar stenosis. Mitral Valve Mitral valve leaflets open well. There is trace of mitral valve regurgitation noted. There is no mitr al valve stenosis. Tricuspid Valve The tricuspid valve is normal in structure. There is trace of tricuspid valve regurgitation noted. Pulmonic Valve The pulmonary valve is normal in structure. There is no pulmonic valvular regurgitation. Great Vessels The aortic root is normal in size. The IVC is normal in size and collapses >50% with inspiration. Pericardium There is no pericardial effusion. Other Information Quality : Adequate Conclusion LVEF is 60-65%. 3D volume EF 64%. Stage I diastolic dysfunction. GLS -21.0%. There is normal LV segmental wall motion. Normal global strain The aortic root is normal in size. There is no pericardial effusion.
--- NOTE | 2024-07-31 16:14 | NUR ---
REPAGED DR. ROSA FOR NEW CONSULT. SPOKE WITH ISAIAS FROM HIS OFFICE.
--- NOTE | 2024-07-31 16:57 | CONS ---
[facility] CONSULTATION NOTE Date Patient Seen: Jul 31, 2024 Time of Visit: 16:34 Supervising Physician: [Dr. Gray] Reason for Consultation: [ cough ] Primary Care Physician: [ Dr. Short ] Outpatient Specialists: [ ] Inpatient Consults: [ Dr. Gray, Dr. Zimmerman] PROBLEM LIST: 1.Positive strep throat POA 2.Elevated troponin rule out ACS POA 3.Uncontrolled diabetes mellitus, Hb A1c 7.5, POA 4.Hypertension POA 5.Hyperlipidemia 6. Current smoker, chronic 7. H/o Asthma HPI: Patient is a 74 year old female with past medical history of diabetes mellitus, hypertension, hyperlipidemia, fatty liver, asthma, chronic smoker came to the ED with complaints of nonproductive cough with sore throat, headache and generalized weakness since Tuesday evening. She reports seeing her PCP Dr. Short on Tuesday who evaluated her and referred her to the ED to rule out pneumonia. In the ED her vitals were blood pressure 121/58, heart rate 81, saturating at 97% on room air, T-max 98.4 and remarkable labs were troponin 55, 55, 59, 50, BNP 19, glucose 184, HbA1c 7.5. She tested positive for strep A. Chest x-ray was normal and she She was given aspirin 325, Tylenol 650, Solu- Medrol, DuoNeb and was started on IV fluids in the ED and was admitted for further management. BIS was consulted in view of cough and generalized weakness by the hospitalist. Patient was seen in room 217. She is awake, alert and oriented and resting comfortably in bed. No acute events overnight. She is hemodynamically stable and saturating at 96% on room air. She says her cough has improved since last night and has been minimal, denies chest pain or palpitations or dizziness or shortness of breath or orthopnea, PND, nausea or vomiting. We will start her on azithromycin for strep a as she is allergic to penicillins. Her 2D echo showed LVEF 60-65%, stage I diastolic dysfunction, no pleural effusion, pending Cardiology recommendations for mildly elevated troponin. WBC 5.0, no fevers in the past 48 hours, CMP unremarkable. Thank you for the consult. PAST MEDICAL HX: see above PAST SURGICAL HX: noncontributory SOCIAL HISTORY: Smokes 5-6 cigarettes cigarettes per day since 30 years, no ETOH, or illicit drug use Coded Allergies: Penicillins (Unverified Allergy, Unknown, 07/30/24) egg (Unverified Allergy, Unknown, 07/30/24) REVIEW OF SYSTEMS: 12 point ROS reviewed with patient. Pertinent positives mentioned above. Otherwise negative. PHYSICAL EXAM: GENERAL: alert, awake oriented x 3 HEENT: EOMI, Sclera non icteric, moist mucosa NECK: Supple, no JVD, trachea midline LUNGS: Clear breath sounds bilaterally. No wheezes HEART: Regular rate and rhythm. Normal S1 and S2, without murmurs ABD: Abdomen soft, nontender. Bowel sounds present EXT: No clubbing cyanosis or edema NEURO: Alert and oriented to person, follows commands Vital Signs (last 8hr) Date Time Temp Pulse Resp B/P (MAP) Pulse Ox O2 Delivery O2 Flow Rate FiO2 07/31/24 16:00 98.1 80 38 134/57 97 07/31/24 14:47 76 18 07/31/24 12:00 98.2 83 17 120/50 96 Room Air 07/31/24 11:00 81 15 125/62 96 07/31/24 10:55 75 18 07/31/24 10:19 96 Room Air* 0 21 07/31/24 10:00 81 18 126/48 93 07/31/24 09:30 90 18 124/64 93 07/31/24 09:30 98.1 83 22 126/48 96 Room Air LABS: Hematology Labs: Test 07/31/24 07:06 Range/Units White Blood Count 5.0 4.8-10.8 K/uL Red Blood Count 4.41 4.00-5.50 MIL/uL Hemoglobin 12.9 12.0-16.0 g/dL Hematocrit 40.3 36-48 % Mean Corpuscular Volume 91.4 79-99 fL Mean Corpuscular Hemoglobin 29.3 27.0-33.0 pg Mean Corpuscular Hemoglobin Concent 32.0 32.0-36.0 g/dL Red Cell Distribution Width 13.6 11.0-15.5 % Platelet Count 234 130-400 K/uL Mean Platelet Volume 10.1 7.5-10.5 fL Immature Granulocyte % (Auto) 0.4 0-1 % Neutrophils (%) (Auto) 83.6 H 40.0-77.0 % Lymphocytes (%) (Auto) 15.0 L 21.0-51.0 % Monocytes (%) (Auto) 1.0 L 3.0-13.0 % Eosinophils (%) (Auto) 0.0 0.0-8.0 % Basophils (%) (Auto) 0.0 0.0-5.0 % Neutrophils # (Auto) 4.2 1.8-7.7 K/uL Lymphocytes # (Auto) 0.8 L 1.0-4.8 K/uL Monocytes # (Auto) 0.1 0.1-1.0 K/uL Eosinophils # (Auto) 0.00 0.00-0.70 K/uL Basophils # (Auto) 0.00 0.00-0.20 K/uL Absolute Immature Granulocyte (auto 0.02 0-1 K/uL Nucleated Red Blood Cells 0.0 0.0-0.19 % Erythrocyte Sedimentation Rate 25 0-30 MM/HR Chemistry Labs: Test 07/31/24 16:16 07/31/24 07:06 07/30/24 17:59 Range/Units Whole Blood Glucose 155 #H 70-110 MG/DL Sodium Level 141 136-145 mmol/L Potassium Level 4.3 3.5-5.1 mmol/L Chloride Level 105 101-111 mmol/L Carbon Dioxide Level 27 21-32 mmol/L Blood Urea Nitrogen 14 7-18 mg/dL Creatinine 0.8 0.5-1.0 mg/dL Glomerular Filtration Rate Calc 78 >90 mL/min Random Glucose 283 #H 70-105 mg/dL Total Calcium 9.1 8.5-10.1 mg/dL Magnesium Level 1.80 1.80-2.40 mg/dL Total Bilirubin 0.1 L 0.2-1.0 mg/dL Aspartate Amino Transf (AST/SGOT) 17 10-37 U/L Alanine Aminotransferase (ALT/SGPT) 18 12-78 U/L Alkaline Phosphatase 91 50-136 U/L Total Creatine Kinase 108 21-232 U/L Troponin I High Sensitivity 50 4-50 ng/L Total Protein 7.4 6.0-8.3 g/dL Albumin 3.2 L 3.5-5.0 g/dL Triglycerides Level 23 L 30-200 mg/dL Cholesterol Level 172 <200 mg/dL LDL Cholesterol 85 0-99 mg/dL HDL Cholesterol 76 35-85 mg/dL Hemoglobin A1c 7.5 H 4.0-6.0 % Estimated Average Glucose (eAG) 169 H 70-126 mg/dL B-Type Natriuretic Peptide 19 0-100 pg/mL DIAGNOSTICS / RADIOLOGY RESULTS: PATIENT: FLO GUTHRIE MR#: [id number] : 1950 SEX: F AGE: 74 LOCATION: [facility] ORDER 1733 STATUS: REG ER REPORT#: [id number] SERVICE 173 REASON: cough ORDERING PHYSICIAN: JOHN LOPES PROCEDURE: CXR1VW - CHEST 1VW PORTABLE CHEST RADIOGRAPH INDICATION: cough COMPARISON: None FINDINGS: Heart size is normal. Mild calcific plaque is present along the aortic arch hsieh. The pulmonary vascularity and isabel appear normal. No abnormal pulmonary parenchymal opacity or consolidation identified. Left hemidiaphragm is slightly elevated. No significant pleural effusion noted. No pneumothorax detected. IMPRESSION: No radiographic evidence for any acute cardiopulmonary process. DICTATED BY: PATIENCE MORRELL MD DATE: 07/30/241819 ELECTRONICALLY SIGNED BY: PATIENCE MORRELL MD DATE: 07/30/241822 PATIENT: FLO GUTHRIE MR#: [id number] : 1950 SEX: F AGE: 74 LOCATION: 2CH ORDER 1000 STATUS: ADM IN [facility] REPORT#: [id number] SERVICE [id number] REASON: elevated troponins ORDERING PHYSICIAN: LEATHA SALINAS MD PROCEDURE: ECHO CMP - ECHO 2-D COMPLETE APPROVED REPORT EXAM: Two-dimensional and M-mode echocardiogram with Doppler and color Doppler. INDICATION ICD: Elevated troponin 2D Dimensions IVSd 1.2 (0.7-1.1cm) LVEF(%) 65.2 (>50%) LVED Vol(simp.) 73.0 mL LVDd 4.2 (3.8-5.6cm) FS(%) 35 % LVES Vol(simp.) 27.0 mL PWd 0.9 (0.7-1.1cm) LA (2D) 3.7 (1.6-4.0cm) LVEF(%, simp.) 63 % IVSs 1.5 cm Ao Root(2D) 2.6 (2.0-3.7cm) LA ESV INDEX (BP) 27.21 mL/m2 LVDs 2.7 (2.5-4.0cm) LVOT diam 2.2 (1.8-2.4cm) PWs 1.3 cm IVC diam 1.9 cm Deformation Strain Apical 4 -22.0 % Apical 2 -22.0 % Apical 3 -19.0 % Global Strain -21.0 % M-Mode Dimensions EPSS 0.5 cm LA (MM) 3.8 (1.6-4.0cm) Ao Root(MM) 3.0 (2.0-3.7cm) Aortic Valve AoV Vmax 1.7 m/s Ao Peak GR 11.0 mmHg LVOT Vmax 1.1 m/s AoV VTI 0.4 m Ao Mean GR 5.8 mmHg LVOT VTI 0.28 m QUIANA (VMAX) 2.7 cm2 QUIANA (VTI) 2.7 cm2 Mitral Valve MV E Vmax 96.7 cm/s DECEL Time 246 ms MV A Vmax 118.5 cm/s P 1/2 T 58 ms E/A ratio 0.8 MVA (PHT) 3.8 cm2 TDI E/E' Medial 13.8 E/E' Lateral 13.8 Medial E' Peak V 7.00 cm/s Lateral E' Peak V 7.00 cm/s Pulmonary Valve PV Vmax 1.2 m/s Tricuspid Valve TR Vmax 2.0 m/s RAP (EST) 3 mmHg RVSP 20.2 mmHg TR Peak GR 17.2 mmHg Left Ventricle The left ventricle is normal size. GLS -21.0%. There is normal LV segmental wall motion. Normal global strain There is mild left ventricular wall thickness. LVEF is 60-65%. 3D volume EF 64%. Stage I diastolic dysfunction. Right Ventricle The right ventricle is normal size. The right ventricular systolic function is normal. Atria The left atrium size is normal. The right atrium size is normal. Aortic Valve The aortic valve is normal in structure. No aortic regurgitation is present. There is no aortic valvular stenosis. Mitral Valve Mitral valve leaflets open well. There is trace of mitral valve regurgitation noted. There is no mitral valve stenosis. Tricuspid Valve The tricuspid valve is normal in structure. There is trace of tricuspid valve regurgitation noted. Pulmonic Valve The pulmonary valve is normal in structure. There is no pulmonic valvular regurgitation. Great Vessels The aortic root is normal in size. The IVC is normal in size and collapses >50% with inspiration. Pericardium There is no pericardial effusion. Other Information Quality : Adequate Conclusion LVEF is 60-65%. 3D volume EF 64%. Stage I diastolic dysfunction. GLS -21.0%. There is normal LV segmental wall motion. Normal global strain The aortic root is normal in size. There is no pericardial effusion. DICTATED BY: SPARKLE GARCIA MD DATE: 07/31/24 1017 ELECTRONICALLY SIGNED BY: SPARKLE GARCIA MD DATE: 07/31/24 1135 PLAN We will start the patient on azithromycin and discontinue Levaquin. Patient is cleared from BIS standpoint for discharge on oral azithromycin NEURO: Minimize central acting medications as possible. Fall Precautions. Well lighted room through the day and minimize interruptions through the night to prevent acute delirium. PULMONARY: Supplemental 02 as needed Titrate Fio2 to keep Spo2 > or = 90% DuoNebs and CPT as needed IS hourly while awake for pulmonary hygiene Out of bed to chair as tolerated VAP Bundle Vent/BIPAP Settings: [ ] Driving pressure: [ ] P Plat: [ ] Static C: [ ] Static R: [ ] P/F Ratio: [ ] CARDIOVASCULAR: Follow hemodynamics. Titrate vasopressor to keep MAP >65 or systolic blood pressure >95mmHg DIPS: [ ] LINES: [ ] GI & NUTRITION: Continue nutritional support Aspirations precautions Prokinetic agents and laxatives as needed KIDNEYS & ELECTROLYTES: Strict monitoring of intake and output Daily weights Avoid nephrotoxic agents Monitor electrolytes and replace as needed Goal urine output of 30mL/hr or 0.5mL/kg/hr Urine output: [ ] Fluid Balance: [ ] ENDOCRINE: Maintain blood glucose between 100-180 at all times. Insulin sliding scale for blood glucose management INFECTIOUS DISEASE: Trend temperature. Chaves-culture if febrile. Micro: [ ] Antibiotics: [ ] HEMATOLOGY & COAGULATION: Monitor H&H. Keep Hgb > 7 Transfuse 1 unit of PRBC for Hgb < 7 Transfuse 1 pack of platelets of platelets < 20, 000 Watch for any signs and symptoms of bleeding SKIN: Pressure ulcer prevention per facility protocol Rehab: PT/OT Prophylaxis: GI: [ ] DVT: [ ] Code Status: Full Resuscitation Disposition: [ ] Other: Total patient care time exceeds 35 minutes excluding all procedures. Case was discussed and seen with my supervising physician. The above plan was formulated and agreed upon. ATTESTATION BY PHYSICIAN I have seen and examined the patient. I reviewed the documentation, medical decision making, and treatment plan as noted by the resident provider above. I agree with the findings and plan of care. Nahum Gray MD, NIHITHA MD Jul 31, 2024 16:57
[2024-07-31] MEDS: AZITHROMYCIN 250 MG TABLET PO ONE (18:01)
[2024-07-31] MEDS: simVASTatin 20 MG TABLET PO SCH (20:47)
[2024-07-31] MEDS: pregABALin 100 MG CAPSULE PO SCH (20:47)
[2024-08-01] VITALS (8 sets, daily range): BP systolic 114–132; BP diastolic 58–68; PULSE 70–79; RESP 16–18; TEMP 97.9–98.2; O2SAT 93–100
[2024-08-01] MEDS: guaiFENesin-DM 200/20MG 10ML PO PRN (00:06)
[2024-08-01] MEDS: hydroCHLOROthiazide 25 MG TABLET PO SCH (08:27)
[2024-08-01] MEDS: LISINOPRIL 20 MG TABLET PO SCH (08:28)
[2024-08-01] MEDS: amLODIPine 5 MG TAB PO SCH (08:28)
[2024-08-01] MEDS: acetaMINOPHEN 325 MG TAB PO PRN (08:29)
[2024-08-01] MEDS ORDERED: NON-FORMULARY MEDICATION 1 EACH (Lisinopril/Hydrochlorothiazide (Lisinopril-Hctz 20-25 mg PO SCH (09:00)
[2024-08-01] MEDS ORDERED: AEC81 PO (09:23)
[2024-08-01] MEDS ORDERED: AZIT500T4 PO (09:24)
[2024-08-01] MEDS ORDERED: CODE10LI2 PO (09:24)
--- NOTE | 2024-08-01 10:23 | DS ---
Discharge Summary Hospital Course Summary: This is a 74-year-old female, Sami-speaking with past medical history of chronic back pain, diabetes, hypertension and hyperlipidemia who presented to the ED coming from PCP clinic for evaluation of bronchitis and r/o pneumonia. As per ER report patient having dry cough with sore throat and chest pain with coughing. Seen and examined patient in the ED awake,alert and coherent,appears comfortable. In the emergency room vital signs temperature 98.4, heart rate 81, blood pressure 121/58, saturation 97% on room air. The emergency room Labs: CBC . Glucose 184, troponin 55 BNP 19 the rest of the chemistry is normal. Serology to include Influenza type a and B negative, SARs COVID negative group A strep positive. EKG result revealed sinus rhythm heart rate 75 with right bundle branch block. Chest x-ray result revealed no radiographic evidence for any acute cardiopulmonary process. While in the ER patient received aspirin 325 mg IV, Tylenol 650 mg p.o., Solu- Medrol 125 mg IV DuoNeb and patient is started on NS at 1:25 a.m. mL/hour. Patient admitted for further evaluation and medical management. Today the patient is hemodynamically stable, afebrile, saturating normal on room air. CBC is unremarkable. Patient evaluated by pulmonary physician, recommended to change antibiotics from Levaquin to azithromycin. Results of latest troponin negative. Today the patient is alert oriented x3, hemodynamically stable, we will like to be discharged home. She denies dizziness, no headache, no blurry vision, no chest pain, denied shortness a breath, no nausea, no vomiting, no abdominal pain, no diarrhea, no constipation, no melena, no hematochezia, no hematemesis, no hematuria, no dysuria PHYSICAL EXAM GENERAL APPEARANCE: The patient is awake, alert, and oriented, in no acute cardiopulmonary distress. NEUROLOGICAL: Cranial nerves II-XII grossly intact. Motor is 5/5 in bilateral upper and lower extremities proximal to distal. No sensory deficits. HEENT: Face is symmetric. Pupils are equal and reactive. Extraocular movements are intact. NECK: Supple. No JVD. No thyromegaly. No submental, submandibular, pre- /postauricular, occipital or supraclavicular lymphadenopathy. CHEST: Normal chest expansion. No Telemetry. LUNGS: Absence of any rales, rhonchi or any wheezing. CARDIOVASCULAR: Regular. S1 and S2 normal. No appreciable rubs, murmurs or gallops. ABDOMEN: Soft, nontender, and nondistended. There is no rebound, voluntary guarding, or rigidity. : Deferred. No [place]. EXTREMITIES: Non-edematous and not cyanotic. No clubbing. Good capillary refill. SKIN: No skin breakdown. Customer Trainer(s): Pulmonary Assessment/Plan: Final diagnosis Elevated troponin rule out ACS POA Positive strep throat POA Uncontrolled diabetes POA Hypertension POA Hyperlipidemia POA Right bundle branch block per ECG POA Discharge Instructions: Patient to follow up with primary care physician as an outpatient, patient to return to the hospital if condition changes. Patient agreed with plan and understood the information provided. Home Medications: Active Scripts Azithromycin (Azithromycin) 500 Mg Tablet, 1 TAB PO DAILY for 5 Days, #5 TAB 0 Refills Prov:LEATHA SALINAS MD 08/01/24 Codeine Phosphate/Guaifenesin (Guaifen-Codeine 200-20 mg/10Ml) 20 Mg-200 Mg/10 Ml Liquid, 10 ML PO Q8H PRN for cough, #7 ML 1 Refill Prov:LEATHA SALINAS MD 08/01/24 Aspirin (ASPIRIN 81 MG ECTAB) 81 Mg Ectab, 81 MG PO DAILY for 30 Days, #30 TAB.EC 1 Refill Prov:LEATHA SALINAS MD 08/01/24 Reported Medications Amlodipine Besylate (Amlodipine Besylate) 10 Mg Tablet, 1 TAB PO DAILY for 30 Days, #30 TAB 0 Refills 07/31/24 Metformin HCl (Metformin HCl) 1,000 Mg Tablet, 1 TAB PO BID for 30 Days, #60 TAB 0 Refills 07/31/24 Lisinopril/Hydrochlorothiazide (Lisinopril-Hctz 20-25 mg Tab) 20 Mg-25 Mg Tablet, 1 TAB PO DAILY for 30 Days, #30 TAB 0 Refills 07/31/24 Pregabalin (Lyrica) 100 Mg Capsule, 1 CAP PO BID for 30 Days, #60 CAP 0 Refills 07/31/24 Simvastatin (Simvastatin) 20 Mg Tablet, 1 TAB PO HS for 30 Days, #30 TAB 0 Refills 07/31/24 Time spent arranging discharge: 31-60 minutes LEATHA SALINAS MD Aug 01, 2024 10:23
--- NOTE | 2024-08-01 11:13 | HMCIMG ---
CT CHEST WITHOUT CONTRAST INDICATION: Strep positive TECHNIQUE: Routine axial images using 5 mm slice thickness were acquired from the lung apices to the bases without the administration of IV contrast.Coronal and sagittal reformatted images acquired for interpretation. CT was performed with one or more of the following dose reduction techniques: Automated exposure control, adjustment of the mA and/or kV according to patient size, or use of iterative reconstruction technique. COMPARISON: None FINDINGS: The heart size is normal. Coronary arterial wall calcific plaque noted. No pericardial effusion noted. Mild calcific plaque is present along the aortic arch and thoracic aortic hsieh without aneurysmal dilation. The trachea and airways are patent. No evidence for pulmonary nodule, consolidation, cavitary lesion, or other abnormal pulmonary parenchymal opacity. No axillary, hilar, or mediastinal lymphadenopathy. No pleural effusion or pneumothorax identified. Gallbladder is absent. Mild thoracic spondylosis. IMPRESSION: No evidence for any acute cardiopulmonary process. Arteriosclerotic disease as described.
--- NOTE | 2024-08-01 12:15 | NUR ---
DISCHARGE HOME IV,ID BANDS AND TELEPAK REMOVED. DISCHARGE INSTRUCTIONS GIVEN AND EXPLAINED TO PATIENT. PATIENT WHEELED DOWN TO PRIVATE CAR.
[2024-08-01] MEDS ORDERED: AZITHROMYCIN 250 MG TABLET PO SCH (17:00)
== END 2024-08-01 12:10 | disposition home or self-care (01) ==
LOC: EDH 17:21 → INTOOBSV 17:22 → EDHIP 17:22 → 2CH 07-31 09:38 → 2DH 08-01 00:31
PROVIDERS: ADMIT Internal Medicine; ATTEND Internal Medicine
DX: J02.0 Streptococcal pharyngitis (principal); Z20.822 Contact with and (suspected) exposure to COVID-19; E11.65 Type 2 diabetes mellitus with hyperglycemia; I10 Essential (primary) hypertension; E78.5 Hyperlipidemia, unspecified; I45.10 Unspecified right bundle-branch block; E78.00 Pure hypercholesterolemia, unspecified; J45.909 Unspecified asthma, uncomplicated; K76.0 Fatty (change of) liver, not elsewhere classified; Q33.3 Agenesis of lung; F17.210 Nicotine dependence, cigarettes, uncomplicated; Z79.82 Long term (current) use of aspirin; Z88.0 Allergy status to penicillin; Z79.899 Other long term (current) drug therapy
CPT/HCPCS: 99285; 96375 ×3; 83036; 82550 ×2; 83735 ×2; 84484 ×4; 80048; 83880; 85025 ×2; 87880; 87804 ×2; 87426; 81003; 36415 ×2; 71045; 96365; 93005; 94640; 96372 ×2; 80061; 80053; 85651; 82948 ×5; 71250; 93306; 93356; 76376; 96376; G0378 ×42; J1956; J7030; J2919; J0456; J1815 ×3; J3490 ×2; J1650 ×2; 82803; 94664

== ENCOUNTER 2025-01-21 18:54 | Emergency (ER) | payer MEDICARE ==
[~2025-01-21] VITALS: Ht 154.9 cm; Wt 75.7 kg
[~2025-01-21 18:54] MED LIST: AEC81 PO; AMLO-258 PO; AZIT500T4 PO; CODE10LI2 PO; LISI1TAB53 PO; METF-446 PO; PREG100C PO; SIMV-43 PO
[2025-01-21 18:56] VITALS: BP 110/51; PULSE 75; RESP 16; TEMP 97.9
--- NOTE | 2025-01-21 19:44 | ERN ---
ED Note History of Present Illness Stated Complaint: LEFT EAR ACHE Chief Complaint: Earache Time Seen by MD: 19:06 Dictation: This is a 74-year-old female who presented to the emergency room complaining of pain in the neck posterior to the left ear. Patient does not have any pain in side the ear or pinna of the ear. This pain in the neck area has been going on for 4-5 days she also reports that there is radiation superiorly to the head. No fever chills or rigors. No ear drainage. No rash. She also reports pain in the lower back area. No history of any trauma, surgeries. The pain increases with any movement and also reports tenderness. No bladder or bowel incontinence. No ataxia or muscle weakness Temperature 97.9 pulse 75 respirations 16 blood pressure 110/51 with a pulse oximetry of 99% on room air Chronic medical problems include osteoarthritis, diabetes mellitus type 2, hypertension, hypercholesterolemia and chronic back pain. Allergies: Coded Allergies: Penicillins (Unverified Allergy, Unknown, 07/30/24) egg yolk (Unverified Allergy, Unknown, 07/31/24) Home Meds Active Scripts Ibuprofen (Ibuprofen) 600 Mg Tablet, 1 TAB PO TID for pain for 7 Days, #21 TAB 0 Refills with food Prov:CLIVE LANGSTON MD 01/21/25 Prednisone (Prednisone) 20 Mg Tablet, 1 TAB PO AD for 6 Days, #14 TAB 0 Refills TAKE 1 TAB BY MOUTH THREE TIMES PER DAY X3 DAYS, THEN TAKE 1 TAB BY MOUTH TWICE A DAY X2 DAYS, THEN TAKE 1 TAB BY MOUTH ONCE A DAY X1 DAY. Prov:CLIVE LANGSTON MD 01/21/25 Cyclobenzaprine HCl (Cyclobenzaprine HCl) 5 Mg Tablet, 1 TAB PO TIDP PRN for m uscle spasms for 5 Days, #15 TAB 0 Refills Prov:CLIVE LANGSTON MD 01/21/25 Azithromycin (Azithromycin) 500 Mg Tablet, 1 TAB PO DAILY for 5 Days, #5 TAB 0 Refills Prov:LEATHA SALINAS MD 08/01/24 Codeine Phosphate/Guaifenesin (Guaifen-Codeine 200-20 mg/10Ml) 20 Mg-200 Mg/10 Ml Liquid, 10 ML PO Q8H PRN for cough, #7 ML 1 Refill Prov:LEATHA SALNIAS MD 08/01/24 Aspirin (ASPIRIN 81 MG ECTAB) 81 Mg Ectab, 81 MG PO DAILY for 30 Days, #30 T AB.EC 1 Refill Prov:LEATHA SALINAS MD 08/01/24 Reported Medications Amlodipine Besylate (Amlodipine Besylate) 10 Mg Tablet, 1 TAB PO DAILY for 30 Days, #30 TAB 0 Refills 07/31/24 Metformin HCl (Metformin HCl) 1,000 Mg Tablet, 1 TAB PO BID for 30 Days, #60 TAB 0 Refills 07/31/24 Lisinopril/Hydrochlorothiazide (Lisinopril-Hctz 20-25 mg Tab) 20 Mg-25 Mg Tablet, 1 TAB PO DAILY for 30 Days, #30 TAB 0 Refills 07/31/24 Pregabalin (Lyrica) 100 Mg Capsule, 1 CAP PO BID for 30 Days, #60 CAP 0 Refills 07/31/24 Simvastatin (Simvastatin) 20 Mg Tablet, 1 TAB PO HS for 30 Days, #30 TAB 0 Refills 07/31/24 Past Medical History Past Medical History: Arthritis, Diabetes-Type II, High Cholesterol, Hypertension Additional Past Medical Hx: CHRONIC BACK PAIN Surgical History: Cholecystectomy Surgical History Other: BACK PAIN Family History: Negative Social History: Negative History: Not Applicable RN Note Reviewed/Agreed w/PFSH: Yes Review of System Dictation Constitutional: Negative for fever,chills, and weight loss Eyes: Negative for injury, pain,redness, and discharge ENT: Negative for injury,pain or swelling Neck-pain in the left side of the neck posterior to the ear extending to the upper part of the thorax Cardiovascular: Negative for chest pain, palpitations, and edema Respiratory: Negative for shortness of breath, cough, and wheezing, Abdomen/GI: Negative for abdominal pain, nausea, vomiting, diarrhea, and constipation Back: Negative for injury and pain : Negative for injury, bleeding and discharge MS/Extremity: Negative for injury and deformity Skin: Negative for rash, and discoloration Neuro: Negative for headache, weakness, numbness, tingling, and seizure Psych: Negative for suicide ideation, homicidal ideation, and hallucinations Initial Vital Sign VS Vital Signs Date Time Temp Pulse Resp B/P (MAP) Pulse Ox O2 Delivery O2 Flow Rate FiO2 01/21/25 18:56 97.9 75 16 110/51 99 Room Air 0 Physical Exam Dictation General: awake, alert, NAD Head/Face: Normocephalic, atraumatic Eyes: PERRL, EOMI, vision at baseline medial subconjunctival hemorrhage in the right eye ENT: oral cavity clear, TMs clear, no signs of infection Neck: Trachea midline, supple, no nuchal rigidity. Pain and tenderness in movement of the neck to the left and right. No erythema no bony deformities Cardiovascular: RRR, normal S1/S2, No MRGs, no JVD Respiratory: CTAB, no respiratory distress, No rales or wheezes Abdomen: Soft, non-tender, non-distended, normal bowel sounds, no guarding or rebound. Skin: Warm, dry, normal turgor, no rash MS/Extremity: Pulses equal, no cyanosis, neurovascular intact, FROM Neuro: COAx4, GCS 15, strength 5/5, CN 2-12 intact, normal cerebellar exam, normal gait, Psych: Normal behavior, mood, and affect normal Extremities-trace edema without any palpable cords, Homans sign is negative Results (Laboratory/Radiology) Labs Reviewed?: Yes CT Scan Comment: REASON: left sided headache with neck pain- spintaneous conjunctival hemorrhage ORDERING PHYSICIAN: CLIVE LANGSTON MD PROCEDURE: HEAD WO - CT HEAD/BRAIN W/O CONTRAST EXAM: CT Head Without Intravenous Contrast. CLINICAL HISTORY: 74-year-old female with left-sided headache and neck pain. TECHNIQUE: Axial computed tomography images of the head/brain without intravenous contrast. Dose reduction technique was used including one or more of the following: automated exposure control, adjustment of mA and kV according to patient size, and/or iterative reconstruction. CONTRAST: None. COMPARISON: None. FINDINGS: BRAIN: No acute intraparenchymal hemorrhage. No mass lesion. No CT evidence for acute territorial infarct. No midline shift or extra-axial collection. VENTRICLES: No hydrocephalus. ORBITS: The orbits are unremarkable. SINUSES AND MASTOIDS: The paranasal sinuses and mastoid air cells are clear. SOFT TISSUES: No significant facial or scalp soft tissue swelling evident. No radiopaque foreign body is seen. BONES: No acute skull fracture. IMPRESSION: 1. No acute intracranial abnormality. /[facility] BY: SAMM COBB MD DATE: 01/21/252237 ELECTRONICALLY SIGNED BY: SAMM COBB MD DATE: 01/21/252237 ED Course ED Course Orders Procedure Category Date Status Time Ct Head/Brain W/O CT 01/21/25 Resulted Contrast 19:42 Cyclobenzaprine Hcl PHA 01/21/25 Complete (Cyclobenzaprine Hcl 20:00 Morphine 4mg Syg PHA 01/21/25 Complete (Morphine 4mg Syg) 20:00 Current Medications Medications (Trade) Dose Ordered Sig/Divya Route PRN Reason Start Time Stop Time Status Last Admin Dose Admin Cyclobenzaprine HCl (Cyclobenzaprine HCl) 5 mg ONCE ONCE PO 01/21/25 20:00 01/21/25 20:01 DC 01/21/25 19:57 Morphine Sulfate (morPHINE 4MG SYG) 2 mg ONCE ONCE IM 01/21/25 20:00 01/21/25 20:01 DC 01/21/25 19:58 Vital Signs Date Time Temp Pulse Resp B/P (MAP) Pulse Ox O2 Delivery O2 Flow Rate FiO2 01/21/25 18:56 97.9 75 16 110/51 99 Room Air 0 We will administer medications according to the patient's complaint. Once the results are available, will review and personally interpreted the labs to rule out any acute life-threatening emergency the trach require immediate interv ention and treatment. I will then re-evaluate the patient after treatment and diagnostic exams have return to determine whether the patient requires any further testing, can safely be discharged home or need further admission to hospital for additional treatment and evaluation. Medical Decision Making MDM Differential diagnosis: Cervicalgia, cervical radiculopathy, paraspinal muscle spasm, osteoarthritis This is a 74-year-old female who presented to the emergency room complaining of pain in the neck posterior to the left ear. Patient does not have any pain inside the ear or pinna of the ear. This pain in the neck area has been going on for 4-5 days she also reports that there is radiation superiorly to the head. No fever chills or rigors. No ear drainage. No rash. She also reports pain in the lower back area. No history of any trauma, surgeries. The pain increases with any movement and also reports tenderness. Temperature 97.9 pulse 75 respirations 16 blood pressure 110/51 with a pulse oximetry of 99% on room air Chronic medical problems include osteoarthritis, diabetes mellitus type 2, hypertension, hypercholesterolemia and chronic back pain. Empiric pain medication and muscle relaxant and reassess the response. On re-evaluation patient admits to feeling significantly improved I have also requested a CT scan of the head considering her age, known history of hypertension as well as a small subconjunctival hemorrhage in the right eye.- there was no acute intracranial abnormality noted. I have updated the patient and her son and answered all their questions Rationale: Tests considered and ordered secondary to shared decision making include: Previous outside records reviewed: Old ER visits. Risk of complication and/or morbidity or mortality of patient management: None Medications-Per medication reconciliation Need for hospitalization: Patient does not meet criteria for hospitalization. Need for emergency major/minor surgery: No There are no social concerns with this patient. Prescription drug management Prescriptions will include symptomatic care Patient's prior external medical records from other ER visits were reviewed by me as indicated. Prior testing and results from previous visits were reviewed. Prior tests were taken into account with medical decision making and resource utilization, independent historian/historians were used to obtain complete medical history. I independently interpreted the test that were performed, results were reviewed by me and considered findings on radiology if ordered. Medical management and examination interpretation discussions were had by me with other qualified healthcare professionals as indicated for the patient's care. Problem List Problem List: (1) Cervicalgia (2) Left-sided headache (3) Spasm of cervical paraspinous muscle (4) Subconjunctival hemorrhage of right eye DX & DISP Disposition: Discharge Departure Impression: Primary Impression: Left-sided headache Additional Impressions: Cervicalgia, Subconjunctival hemorrhage of right eye, Spasm of cervical paraspinous muscle Condition: Stable Scripts Ibuprofen (Ibuprofen) 600 Mg Tablet 1 TAB PO TID for pain for 7 Days, #21 TAB 0 Refills with food Prov: CLIVE LANGSTON MD 01/21/25 Prednisone (Prednisone) 20 Mg Tablet 1 TAB PO AD for 6 Days, #14 TAB 0 Refills TAKE 1 TAB BY MOUTH THREE TIMES PER DAY X3 DAYS, THEN TAKE 1 TAB BY MOUTH TWICE A DAY X2 DAYS, THEN TAKE 1 TAB BY MOUTH ONCE A DAY X1 DAY. Prov: CLIVE LANGSTON MD 01/21/25 Cyclobenzaprine HCl (Cyclobenzaprine HCl) 5 Mg Tablet 1 TAB PO TIDP PRN for muscle spasms for 5 Days, #15 TAB 0 Refills Prov: CLIVE LANGSTON MD 01/21/25 Additional Instructions: Patient and the caregiver have been informed of all the diagnostic tests and the imaging conducted during the today's visit to the emergency room and has verbalized understanding of the results I have personally reviewed and interpreted all diagnostic exams performed here in the ER today as well as the vital signs documented by the nursing staff. The patient is now being discharged to home and should follow up with the primary care physician or the specialist as directed by the ER staff. Follow-up with primary care provider in 1 to 2 days. Take medications as directed here in the emergency room. Okay to continue home medications unless otherwise discussed during your visit in the emergency room today. Return to your nearest emergency room if symptoms worsen or if there is no improvement. Call 911 if you need immediate assistance. Take Tylenol or Motrin [id number] as needed and if no contraindications are present. Increase oral hydration. A wound culture or urine culture was ordered here in the emergency room department please follow-up with primary care provider and advise them to get repeat ports from our facility. If you had any Christiano wrap/splints that were applied here, please do not remove them until you see your primary care or specialty. Referrals: MANUEL HARRIS (PCP) CLIVE LANGSTON MD Jan 21, 2025 19:44
[2025-01-21] MEDS: CYCLOBENZAPRINE HCL 10 MG TABLET PO ONE (19:57)
[2025-01-21] MEDS ORDERED: CYCL5TAB3 PO (20:36)
[2025-01-21] MEDS ORDERED: PRED20TA3 PO (20:37)
[2025-01-21] MEDS ORDERED: IBUP-1492 PO (20:37)
--- NOTE | 2025-01-21 21:39 | HMCIMG ---
EXAM: CT Head Without Intravenous Contrast. CLINICAL HISTORY: 74-year-old female with left-sided headache and neck pain. TECHNIQUE: Axial computed tomography images of the head/brain without intravenous contrast. Dose reduction technique was used including one or more of the following: automated exposure control, adjustment of mA and kV according to patient size, and/or iterative reconstruction. CONTRAST: None. COMPARISON: None. FINDINGS: BRAIN: No acute intraparenchymal hemorrhage. No mass lesion. No CT evidence for acute territorial infarct. No midline shift or extra-axial collection. VENTRICLES: No hydrocephalus. ORBITS: The orbits are unremarkable. SINUSES AND MASTOIDS: The paranasal sinuses and mastoid air cells are clear. SOFT TISSUES: No significant facial or scalp soft tissue swelling evident. No radiopaque foreign body is seen. BONES: No acute skull fracture. IMPRESSION: 1. No acute intracranial abnormality. /[place]
== END 2025-01-21 20:42 | disposition home or self-care (01) ==
LOC: EDH 18:54
DX: M54.2 Cervicalgia (principal); M62.838 Other muscle spasm; H11.31 Conjunctival hemorrhage, right eye; R51.9 Headache, unspecified; E11.9 Type 2 diabetes mellitus without complications; E78.00 Pure hypercholesterolemia, unspecified; I10 Essential (primary) hypertension; M19.90 Unspecified osteoarthritis, unspecified site; Z79.1 Long term (current) use of non-steroidal anti-inflammatories (NSAID); Z79.82 Long term (current) use of aspirin; Z79.84 Long term (current) use of oral hypoglycemic drugs; Z79.899 Other long term (current) drug therapy; Z88.0 Allergy status to penicillin; Z90.49 Acquired absence of other specified parts of digestive tract; Z91.0120 Allergy to eggs, unspecified
CPT/HCPCS: 99285; 70450; 96372; J2270